=== PATIENT | female | born 1980 | race Hispanic/Latino ===

== ENCOUNTER 2017-11-09 22:26 | Emergency (ER) | payer OTHER | END 2017-11-09 23:44 | disposition home or self-care (01) | LOC: SCSER 22:26 | DX: J40 Bronchitis, not specified as acute or chronic (principal); E11.9 Type 2 diabetes mellitus without complications; E78.5 Hyperlipidemia, unspecified; I10 Essential (primary) hypertension; F41.9 Anxiety disorder, unspecified; F32.9 Major depressive disorder, single episode, unspecified | CPT/HCPCS: 94640; J7620 ==

== ENCOUNTER 2019-04-09 10:26 | Outpatient (CLI) | payer BC ==
--- NOTE | 2019-04-09 14:08 | CT ---
CT ABDOMEN AND PELVIS WITH CONTRAST: HISTORY: Left-sided abdominal pain. R10.9. COMPARISON: None. FINDINGS: Lung bases are clear. No pericardial effusion. Prior cholecystectomy. Spleen, pancreas, and adrenal glands are unremarkable. No hydronephrosis. T oo small to characterize hypodensities are present in the right kidney. There appear to be multiple nabothian cysts of the cervix. Midline lower abdominal pelvic surgical s car. No dilated loops of large or small bowel. The appendix is visualized and is normal. Mild hyperenhancement of the terminal ileum. Multiple hypodensities are present at both adnexa. No retroperitoneal or periaortic adenopathy. No acute osseous abnormality. IMPRESSION: 1. Low-grade hyperenhancement of the terminal ileum may be infectious or inflammatory. 2. Normal appendix. 3. No other acute abnormality within the abdomen or pelvis. POS: CET
== END 2019-04-09 10:27 | disposition home or self-care (01) ==
LOC: CT 10:26
PROVIDERS: ATTEND Physician Assistant
DX: R10.9 Unspecified abdominal pain (principal)
CPT/HCPCS: 36415; 74177; 80053; 83690; 85025

== ENCOUNTER 2020-05-17 11:54 | Outpatient (CLI) | payer BC ==
--- NOTE | 2020-05-17 13:41 | MMO ---
Bilateral MAMMO Bilat Screen [facility]. CLINICAL HISTORY: Patient is 39 years old and is seen for screening. The patient has no family history of breast cancer. The patient has no personal history of cancer. VIEWS: The views performed were: bilateral craniocaudal with tomosynthesis and bilateral mediolateral oblique with tomosynthesis. This study has been interpreted with the assistance of computer-aided detection. MAMMOGRAM FINDINGS: There are scattered fibroglandular densities. There are no suspicious masses, suspicious calcifications, or new areas of architectural distortion. IMPRESSION: THERE IS NO MAMMOGRAPHIC EVIDENCE OF MALIGNANCY. A ROUTINE FOLLOW-UP MAMMOGRAM IN 1 YEAR IS RECOMMENDED. THE RESULTS OF THIS EXAM WERE SENT TO THE PATIENT. ACR BI-RADS Category 1 - Negative MAMMOGRAPHY NOTE: 1. A negative mammogram report should not delay a biopsy if a dominant of clinically suspicious mass is present. 2. Approximately 10% to 15% of breast cancers are not detected by mammography. 3. Adenosis and dense breasts may obscure an underlying neoplasm. Reported by: LEEANN PFEIFFER MD Electonically Signed: [id number]
== END 2020-05-17 11:55 | disposition home or self-care (01) ==
LOC: BICMAMMO 11:54
PROVIDERS: ATTEND Physician Assistant
DX: Z12.31 Encounter for screening mammogram for malignant neoplasm of breast (principal)
CPT/HCPCS: 77063; 77067

== ENCOUNTER 2025-07-16 15:34 | Inpatient (IN) | payer OTHER, BC ==
[~2025-07-16 15:34] MED LIST: ISOVUE-370 76% MDV (1 ML CHARGE) ONE; Iopamidol-370 76% 500 ML MDV (1 ML CHARGE) ONE
[2025-07-16] MEDS ORDERED: HYDROmorphone 0.5 MG/0.5 ML SYRINGE ONE (16:26)
[2025-07-16] MEDS ORDERED: Ondansetron PF 4 MG/2 ML Vial ONE ×2 (16:26→21:08)
[2025-07-16] MEDS ORDERED: Acetaminophen 500 MG TAB ONE (19:15)
[2025-07-16] MEDS ORDERED: hydrALAZINE 20 MG/ML VIAL ONE (19:49)
[2025-07-16 20:10] LABS: #Basophils 0.12 10x3/uL (0.0-0.2); #Eosinophils 0.57 10x3/uL (0.0-0.7); #Monocytes 0.78 10x3/uL (0.11-0.59); #Neutrophils 12.05 10x3/uL (1.40-6.50); %Basophils 0.7 % (0.0-1.0); %Eosinophils 3.5 % (0.0-10.0); %Lymphocytes 17.0 % (21.0-51.0); %Monocytes 4.7 % (0.0-10.0); %Neutrophils 73.2 % (42.0-75.0); Hematocrit 43.0 % (36.0-47.0); Hemoglobin 14.5 g/dL (12.0-16.0); Mean Corpuscular Hemoglobin 30.0 pg (27.0-31.0); Mean Corpuscular Volume 89.0 fL (78.0-98.0); Platelet Count 245 10x3/uL (130-400); Red Blood Cell (RBC) Count 4.83 mill/uL (4.20-5.40); White Blood Cell (WBC) Count 16.45 10x3/uL (4.8-10.8)
[2025-07-16 20:21] LABS: BHCG - Serum Negative (NEGATIVE); Pregs Control Background? CLEAR/WHITE (CLR/WHITE); Pregs Control Bar Appear? YES (CONTROL BAR)
[2025-07-16 20:26] LABS: ALT (SGPT) 24 U/L (Less than 34); AST (SGOT) 20 U/L (11-34); Albumin 4.2 g/dL (3.1-4.5); Alkaline Phosphatase 82 U/L (40-110); Anion Gap 15 mmol/L (10-20); BUN (Urea Nitrogen) 7 mg/dL (7.0-18.7); Bilirubin, Total 0.4 mg/dL (0.3-1.2); Calc. Creatinine Clearance 0 mL/min (70-130); Calcium 9.0 mg/dL (7.8-10.44); Carbon Dioxide 22 mmol/L (22-29); Chloride 104 mmol/L (98-107); Globulin 3.2 g/dL (2.4-3.5); Glucose 160 mg/dL (70-105); Potassium 4.1 mmol/L (3.5-5.1); Sodium 137 mmol/L (136-145)
[2025-07-16] MEDS ORDERED: Dextrose 50% Abboject 50 ML SYRINGE SLOW IVP PRN (20:29)
[2025-07-16] MEDS ORDERED: Acetaminophen 325 MG TAB PO PRN (20:29)
[2025-07-16] MEDS ORDERED: Glucagon 1 MG/ML KIT IM PRN (20:29)
[2025-07-16] MEDS ORDERED: Ondansetron PF 4 MG/2 ML Vial IVP PRN (20:29)
[2025-07-16 20:37] LABS: INR-International Normal Ratio 1.0; Prothrombin Time 13.7 sec (12.0-14.7)
[2025-07-16 20:38] LABS: PTT 33.9 sec (22.9-36.1)
[2025-07-16] MEDS ORDERED: diphenhydrAMINE 50 MG/ML VIAL ONE (21:08)
[2025-07-16] MEDS: Sulfameth/Trimethoprim DS 800-160mg TAB PO SCH (23:37)
[2025-07-17 00:52] VITALS: BMI 29.2
[2025-07-17 03:57] LABS: #Basophils 0.10 10x3/uL (0.0-0.2); #Eosinophils 0.34 10x3/uL (0.0-0.7); #Monocytes 0.78 10x3/uL (0.11-0.59); #Neutrophils 11.14 10x3/uL (1.40-6.50); %Basophils 0.6 % (0.0-1.0); %Eosinophils 2.2 % (0.0-10.0); %Lymphocytes 21.3 % (21.0-51.0); %Monocytes 4.9 % (0.0-10.0); %Neutrophils 70.6 % (42.0-75.0); Hematocrit 40.4 % (36.0-47.0); Hemoglobin 13.4 g/dL (12.0-16.0); Mean Corpuscular Hemoglobin 29.8 pg (27.0-31.0); Mean Corpuscular Volume 89.8 fL (78.0-98.0); Platelet Count 253 10x3/uL (130-400); Red Blood Cell (RBC) Count 4.50 mill/uL (4.20-5.40); White Blood Cell (WBC) Count 15.80 10x3/uL (4.8-10.8)
[2025-07-17 06:53] LABS: Anion Gap 13 mmol/L (10-20); BUN (Urea Nitrogen) 7 mg/dL (7.0-18.7); Calc. Creatinine Clearance 166 mL/min (70-130); Calcium 8.7 mg/dL (7.8-10.44); Carbon Dioxide 23 mmol/L (22-29); Chloride 108 mmol/L (98-107); Glucose 93 mg/dL (70-105); Potassium 3.6 mmol/L (3.5-5.1); Sodium 140 mmol/L (136-145)
[2025-07-17] MEDS ORDERED: hydrALAZINE 20 MG/ML VIAL SLOW IVP PRN (07:43)
[2025-07-17] MEDS ORDERED: ALPRAZolam 0.5 MG TAB PO PRN (09:02)
[2025-07-17] MEDS: Aspirin 325 MG TAB PO SCH (09:27)
[2025-07-17] MEDS: Senokot S 8.6-50 MG TAB PO SCH (09:27)
[2025-07-17] MEDS: Amoxicillin/Potassium Clav 875 MG TAB PO SCH (11:14)
[2025-07-17] MEDS: Losartan 25 MG TAB PO SCH (11:14)
[2025-07-17 16:39] VITALS: BP 181/88; TEMP 97.6
[2025-07-17] MEDS ORDERED: Insulin Glargine 30 UNITS/0.3 ML VIAL SC SCH (21:00)
[2025-07-17] MEDS ORDERED: Non-Formulary Item 1 EACH (Insulin Glargine,Hum.Rec.Anlog [Toujeo Solostar] 300 UNIT/ML I SC SCH (21:00)
[2025-07-17] MEDS ORDERED: Amoxicillin/Potassium Clav 875 MG TAB PO SCH (21:00)
[2025-07-17] MEDS ORDERED: Topiramate 100 MG TAB PO SCH (21:00)
[2025-07-18] MEDS ORDERED: Spironolactone 25 MG TAB PO SCH (08:00)
[2025-07-18] MEDS ORDERED: Non-Formulary Item 1 EACH (Losartan [Cozaar] 50 MG Tab) PO SCH (09:00)
[2025-07-18] MEDS ORDERED: Losartan 25 MG TAB PO SCH (09:00)
== END 2025-07-17 18:17 | disposition home or self-care (01) | DRG 103 ==
LOC: ERS 15:34 → ERHOLD 20:46 → 2SE 22:34
PROVIDERS: ADMIT Surgery Trauma Surgery; ATTEND Surgery Trauma Surgery
DX: F07.81 Postconcussional syndrome (principal); F41.9 Anxiety disorder, unspecified; F32.A Depression, unspecified; I10 Essential (primary) hypertension; G43.909 Migraine, unspecified, not intractable, without status migrainosus; E11.9 Type 2 diabetes mellitus without complications; D72.829 Elevated white blood cell count, unspecified; Z90.49 Acquired absence of other specified parts of digestive tract; Z98.51 Tubal ligation status; Z90.710 Acquired absence of both cervix and uterus; Z98.891 History of uterine scar from previous surgery; Z79.899 Other long term (current) drug therapy; Z79.84 Long term (current) use of oral hypoglycemic drugs; Z79.4 Long term (current) use of insulin; Z88.8 Allergy status to other drugs, medicaments and biological substances; Z86.73 Personal history of transient ischemic attack (TIA), and cerebral infarction without residual deficits; E78.00 Pure hypercholesterolemia, unspecified; V43.62XA Car passenger injured in collision with other type car in traffic accident, initial encounter; M54.2 Cervicalgia; R07.9 Chest pain, unspecified; Z79.82 Long term (current) use of aspirin; S00.03XA Contusion of scalp, initial encounter; S00.83XA Contusion of other part of head, initial encounter; J32.9 Chronic sinusitis, unspecified
CPT/HCPCS: 36415; 36416; 70450; 70496; 70498; 70551; 71260; 72125; 74177; 80048; 80053; 83036; 84484; 84703; 85025; 85610; 85730; 93005; 93306; 96365; 96375; 96376; J0360; J1171; J1200; J7030; Q9967

== ENCOUNTER 2025-09-15 14:05 | Outpatient (CLI) | payer OTHER | END 2025-09-15 14:06 | disposition home or self-care (01) | LOC: MRI 14:05 | PROVIDERS: ATTEND Physician Assistant | DX: H81.13 Benign paroxysmal vertigo, bilateral (principal); I67.82 Cerebral ischemia; R90.82 White matter disease, unspecified; J34.89 Other specified disorders of nose and nasal sinuses | CPT/HCPCS: 70551 ==